=== PATIENT | female | born 1975 | race Caucasian/White ===

== ENCOUNTER 2016-06-11 09:15 | Emergency (ER) | payer OTHER ==
[~2016-06-11] VITALS: Ht 172.7 cm; Wt 59.0 kg
[~2016-06-11 09:15] MED LIST: ALBUTEROL0.09 MG/A1 INH; AMOXICILLIN500 M3 PO; AMOXIL 875 MG875 MG PO; AMOXIL500 MG PO; AUGMENTIN 875 M1 TAB PO; AZITHROMYCIN250 M1 PO; BACTRIM DS 8001 TAB PO; BENZONATATE200 M1 PO; FLONASE ALLERG9.9 ML NAS; FLONASE120 SPRAY/ NAS; LOMOTIL 0.025 M1 TAB PO; MEDROL DOSEPAK1 PAC PO; NASONEX0.05 MG/Ac NAS; NASONEX0.05 MG/Ac NS; PEPCID20 M1 PO; PROAIR HFA0.09 MG/Ac INH; PROVENTIL HFA6.7 GM INH; TESSALON PERLE100 M1 PO; TESSALON PERLE100 MG PO; ZITHROMAX Z-PA250 M1 PO; ZITHROMAX250 M2 PO; ZOFRAN4 M1 PO
[2016-06-11 09:19] VITALS: BP 103/58
[2016-06-11] MEDS ORDERED: AUGMENTIN 875-1 EACH PO (09:45)
--- NOTE | 2016-06-11 09:46 | ED INFLUENZA/URI COMPLAINT ---
History of Present Illness General Chief Complaint: Upper Respiratory Sx/Fever Stated Complaint: SORE THROAT, VICTOR,COUGHING Source: patient Exam Limitations: no limitations Vital Signs & Intake/Output Vital Signs & Intake/Output Vital Signs Date Time Temp Pulse Resp B/P Pulse O2 O2 Flow FiO2 Ox Delivery Rate 06/11 0919 100.4 101 18 103/58 99 Room Air Allergies Coded Allergies: NO KNOWN ALLERGIES (08/10/15) Reconcile Medications Albuterol Sulfate (Proventil Hfa) 90 MCG HFA.AER.AD 2 PUF INH Q4 sob Amoxicillin/Potassium Clav (Augmentin 875-125 Tablet) 875 MG-125 MG TABLET 1 TAB PO BID SINUSITIS Azithromycin (Zithromax) 250 MG TABLET 1 DP PO AD sinusitis 2 the first day followed by 1 for days 2-5 Benzonatate 200 MG CAPSULE 1 CAP PO TIDPRN cough Triage Note: PT STATSE SHE HAS A COLD FOR A COUPLE OF DAYS NOW. PT STATES SHE HAS BODY ACHES AND FEELS WEAK FOR THE PAST 4 DAYS. PT STATES SHE IS TAKING OTC MEDS AND THEY ARE NOT WORKING,. Triage Nurses Notes Reviewed? yes : No Patient currently breastfeeds: No HPI: 4 days of URI symptoms, cough congestion, intermittent fever, sinus congestion thick yellow and green nasal discharge sinus pain and pressure mild sore throat, headache frontal. Body aches chills. Atgu-spa-[id number] medication has been ineffective. Symptoms are moderate Past History Travel History Traveled to [place] past 21 day No Medical History Any Pertinent Medical History? 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 No Review of Systems Review of Systems Constitutional: Reports: see HPI. EENTM: Reports: see HPI. Respiratory: Reports: no symptoms. Cardiovascular: Reports: no symptoms. GI: Reports: no symptoms. Genitourinary: Reports: no symptoms. Musculoskeletal: Reports: no symptoms. Skin: Reports: no symptoms. Neurological/Psychological: Reports: no symptoms. Hematologic/Endocrine: Reports: no symptoms. Immunologic/Allergic: Reports: no symptoms. All Other Systems: Reviewed and Negative Physical Exam Physical Exam Ears, Nose, Throat: moist mucous membrane, hearing grossly normal, nasal congestion, nasal drainage, pharyngeal erythema, TENDERNESS TO THE FRONTAL SINUS AND MAXILLARY SINUS REGION Respiratory: normal breath sounds, chest non-tender, no respiratory distress Cardiovascular: tachycardia Comments: Well-developed well-nourished no apparent distress. HEENT: Atraumatic, extraocular motion intact Neck: Supple, no lymphadenopathy Back: Nontender Respiratory: No respiratory distress Extremities: No edema, full range of motion Neuro: Alert and oriented x3 Psych: Mood affect normal, normal memory normal judgment. Skin: Warm and dry, no rash on exposed skin Core Measures Severe Sepsis Present: No Septic Shock Present: No Progress Differential Diagnosis: influenza, meningitis, neutropenia, otitis, pneumonia, pharyngitis, sinusitis Plan of Care: Possible influenza versus sinusitis. It is too late to treat with Tamiflu and she has a large amount of sinus pain and pressure with congestion and thick nasal discharge. We'll treat with Augmentin. Recommend [id number] nasal spray for short-term relief Initial ED EKG: none Departure Departure Disposition: HOME OR SELF CARE Condition: Stable Clinical Impression Primary Impression: Sinusitis Qualifiers: Sinusitis location: maxillary Chronicity: acute Recurrence: non- recurrent Qualified Code: J01.00 - Acute maxillary sinusitis, unspecified Referrals: PATIENT HAS NO PRIMARY CARE DR (PCP/Family) Additional Instructions: Take antibiotics for your infection as directed. Use imrj-amz-wvjmsiy multisystem cold medication as needed. Motrin and Tylenol as needed for fever. Drink plenty of fluids. Return or follow-up with your doctor if not better in the next 3-5 days or if you're having continued worsening fevers, nausea, vomiting, shortness of breath, abdominal pain, difficulty swallowing or drinking or worsening flulike illness. Departure Forms: Customer Survey General Discharge Information Prescriptions: Current Visit Scripts Amoxicillin/Potassium Clav (Augmentin 875-125 Tablet) 1 TAB PO BID #20 TAB
== END 2016-06-11 09:48 ==
LOC: ERH 09:15
DX: J32.9 Chronic sinusitis, unspecified (principal); Z72.0 Tobacco use

== ENCOUNTER 2016-09-18 19:11 | Emergency (ER) | payer OTHER ==
[~2016-09-18] VITALS: Ht 172.7 cm; Wt 59.0 kg
[~2016-09-18 19:11] MED LIST changes: +AUGMENTIN 875-1 EACH PO
--- NOTE | 2016-09-18 21:10 | ED GI/GU/ABDOMINAL COMPLAINT ---
History of Present Illness General Chief Complaint: Abdominal Pain/Flank Pain Stated Complaint: ABD PAIN S/P TAKING DAYQUIL Source: patient, old records Exam Limitations: no limitations Vital Signs & Intake/Output Vital Signs & Intake/Output Vital Signs Date Time Temp Pulse Resp B/P B/P Pulse O2 O2 Flow FiO2 Mean Ox Delivery Rate 09/18 2250 97.2 102 18 116/69 93 09/18 2237 98.2 09/18 1915 101.2 94 16 107/67 97 Room Air ED Intake and Output 09/19 0000 09/18 1200 Intake Total 0 Output Total Balance 0 Intake, Oral 0 Patient 130 lb Weight Weight Reported by Patient Measurement Method Allergies Coded Allergies: NO KNOWN ALLERGIES (08/10/15) Reconcile Medications Albuterol Sulfate (Proventil Hfa) 90 MCG HFA.AER.AD 2 PUF INH Q4 sob Amoxicillin/Potassium Clav (Augmentin 875-125 Tablet) 875 MG-125 MG TABLET 1 TAB PO BID SINUSITIS Azithromycin (Zithromax) 250 MG TABLET 1 DP PO AD sinusitis 2 the first day followed by 1 for days 2-5 Benzonatate 200 MG CAPSULE 1 CAP PO TIDPRN cough Triage Note: PT STATES SHE HAS A COLD AND THIS AM SHE TOOK A DAYQUIL PILL AND THEN SHE BEGAN TO HAVE AN ACIDY GASSY PAIN IN HER STOMACH. Triage Nurses Notes Reviewed? yes ? N Is pt currently ? No Onset: Abrupt Duration: day(s): (1), intermittent, waxing and waning Timing: recent history Quality/Severity: aching Severity Numbers: 4 Location: generalized abdomen Radiation: no radiation Activities at Onset: none Prior Abdominal Problems: none Associated Symptoms: RHINORRHEA, CONGESTION,DRAMATIC READER COUGH HPI: 41-year-old female presents to ER for evaluation stating that she for the past 3 days has had rhinorrhea congestion and nonproductive cough. She states that she took DayQuil this morning began to have epigastric nonradiating abdominal pain. Denies history of similar symptoms in the past no nausea vomiting diarrhea. On arrival patient is afebrile however is declining anything in triage. No history of abdominal surgery she denies chance of no sick contacts she is not taken anything for pain which he states is intermittent and nonradiating waxing and waning. She denies the pain at this time no urinary complaints dysuria urgency frequency. (JENY SHEA) Past History Travel History Traveled to [place] past 21 day No Medical History Any Pertinent Medical History? 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 No (JENY SHEA) Review of Systems Review of Systems Constitutional: Reports: see HPI. All Other Systems: Reviewed and Negative Comments Review of systems: See HPI, All other systems negative. Constitutional, no chills fever, no malaise HEENT: No visual changes no sore throat no congestio Cardiovascular: No chest pain , no palpitation Skin: no rashes, no change in skin Respiratory: No dyspnea no cough GI: No nausea no vomiting, : No dysuria No hematuria, no frequency, no discharge Muscle skeletal: No joint pain, no joint swelling, no back pain, no neck pain, Neurologic: No numbness no headache Psych: No stress Heme/endocrine: No bruising Immunology: No lymphadenopathy (JENY SHEA) Physical Exam Physical Exam General Appearance: well developed/nourished, alert, awake Gastrointestinal: soft Comments: Well-developed well-nourished person in no acute distress Head/Face: Atraumatic, no maxillary/frontal sinus tenderness, no facial swelling Eyes: PERRL, EOMI, no conjunctival injection. Ear:External auditory canals clear, no erythema, no FB. Nose: atraumatic.Normal inspection: No bleeding Throat: Moist mucous membranes.Pharynx normal. No pharyngeal erythema/exudate seen. No stridor/drooling or assymetry. No swelling or edema. Neck: Supple, no lymphadenopathy, FROM Back: Nontender, no CVA tenderness. Full range of motion Cardiovascular: Regular rate and rhythms no murmurs rubs Respiratory: Chest nontender.There were no bony deformities, no asymmetry. No respiratory distress. Patient speaking in full complete sentences. Breath sounds clear to auscultation bilaterally: NO W/R/R Abdomen: Soft, nontender nondistended, no appreciable organomegaly. Normal bowel sounds. No rebound/guarding, No appreciable enlargement of the abdominal aorta, No ascites. Extremity: No edema, full range of motion of extremities Neuro: Alert oriented x3, motor sensory normal. There were no obvious focal neurologic abnormalities. Skin: No appreciable rash on exposed skin, skin is warm and dry. Psych: Mood and affect is normal, memory and judgment is normal. Core Measures ACS in differential dx? No Severe Sepsis Present: No Septic Shock Present: No (EBONY RICHARDS,JENY) Progress Differential Diagnosis: appendicitis, biliary colic, bowel obstruction, cholecystitis, ectopic , gastritis, hepatitis, hernia, ischemic bowel, inflamm bowel dis, kidney stone, pancreatitis, peptic ulcer, PUD/GERD, perforated viscous, SBO, UTI/pyelo, PNA, BRONCHITIS Plan of Care: Orders Procedure Date/time Status Saline Lock 09/18 2124 Active LIPASE 09/18 2124 Complete HUMAN BETA HCG SCREEN 09/18 2124 Complete COMPREHENSIVE METABOLIC PANEL 09/18 2124 Complete CBC WITHOUT DIFFERENTIAL 09/18 2124 Complete AMYLASE 09/18 2124 Complete Laboratory Tests 09/18/162134: Anion Gap 10, Estimated GFR > 60, BUN/Creatinine Ratio 15.7, Glucose 106 H, Calcium 8.8, Total Bilirubin 0.4, AST 23, ALT 30, Alkaline Phosphatase 64, Total Protein 7.6, Albumin 4.1, Globulin 3.5, Albumin/Globulin Ratio 1.2, Amylase 68, Lipase 40, Total Beta HCG NEGATIVE, CBC w Diff NO MAN DIFF REQ, RBC 3.57 L, MCV 85.8, MCH 28.4, RDW 15.1 H, MPV 7.3 L, Gran % 90.3 H, Lymphocytes % 3.8 L, Monocytes % 5.9, Eosinophils % 0, Basophils % 0 L, Absolute Granulocytes 10.8 H, Absolute Lymphocytes 0.5 L, Absolute Monocytes 0.7 H, Absolute Eosinophils 0, Absolute Basophils 0, PUBS MCHC 33.1 Labs ordered patient medicated with Toradol IV fluids On repeat evaluation patient reports she has had no pain here on repeat evaluation temperature is 98.2.. Abdomen soft nontender discussed with her need for bland diet Tylenol Motrin clear liquids advance as tolerated however to return immediately if her symptoms worsen. I discussed with the patient at length all of their results. I had an extensive conversation regarding need for close follow up with their primary care physician this week as well as return precautions. I answered all of their questions, they feel comfortable with the plan and follow-up care. (JENY SHEA) Initial ED EKG: none (JENY SHEA) Departure Departure Time of Disposition: 2239 Disposition: HOME OR SELF CARE Condition: Stable Clinical Impression Primary Impression: Viral syndrome Referrals: PATIENT HAS NO PRIMARY CARE DR (PCP/Family) Additional Instructions: tylenol or motrin every 4-6 hours. bland diet, drink plenty of clear fluids. follow up withyour pmd this week, return to the ER with any concerns Departure Forms: Customer Survey General Discharge Information (JENY SHEA) PA/DRAMATIC READER Co-Sign Statement Statement: ED Attending supervision documentation- [] I saw and evaluated the patient. I have also reviewed all the pertinent lab results and diagnostic results. I agree with the findings and the plan of care as documented in the PA's/DRAMATIC READER's documentation. [X] I have reviewed the ED Record and agree with the PA's/DRAMATIC READER's documentation. [] Additions or exceptions (if any) to the PAs/DRAMATIC READER's note and plan are summarized below: [] (VITO VIGIL,[place])
[2016-09-18 21:42] LABS: ABSOLUTE BASOPHIL COUNT 0 /CUMM (0.0-0.2); ABSOLUTE EOSINOPHIL COUNT 0 /CUMM (0.0-0.7); ABSOLUTE GRANULOCYTE CT 10.8 /CUMM (1.4-6.5); ABSOLUTE LYMPH COUNT 0.5 /CUMM (1.2-3.4); ABSOLUTE MONOCYTE COUNT 0.7 /CUMM (0.10-0.60); BASOPHIL % 0 % (0.0-2.0); EOSINOPHIL % 0 % (0-5); HEMATOCRIT 30.7 % (37-47); MEAN CORPUSCULAR HGB 28.4 PG (27.0-31.0); MEAN CORPUSCULAR HGB CONC 33.1 G/DL (33.0-37.0); MEAN CORPUSCULAR VOLUME 85.8 FL (81.0-99.0); MEAN PLATELET VOLUME 7.3 FL (7.4-10.4); PLATELET COUNT 243 /CUMM (130-400); RBC DISTRIBUTION WIDTH 15.1 % (11.5-14.5); RED BLOOD CELL CT 3.57 /CUMM (4.20-5.40)
[2016-09-18 21:56] LABS: GRANULOCYTE % 90.3 % (42.2-75.2)
[2016-09-18 22:50] VITALS: BP 116/69
== END 2016-09-18 22:52 ==
LOC: ERH 19:11
PROVIDERS: Physician Assistant Medical
DX: B34.9 Viral infection, unspecified (principal)
CPT/HCPCS: 96374; 96375; J1885

== ENCOUNTER 2016-09-20 09:30 | Emergency (ER) | payer OTHER ==
[~2016-09-20] VITALS: Ht 172.7 cm; Wt 59.0 kg
[2016-09-20 09:33] VITALS: BP 114/63
--- NOTE | 2016-09-20 09:54 | ED THROAT/DENTAL COMPLAINT ---
See Addendum History of Present Illness General Chief Complaint: Sore Throat, Dental Pain Stated Complaint: SORE THROAT Source: patient Exam Limitations: no limitations Vital Signs & Intake/Output Vital Signs & Intake/Output Vital Signs Date Time Temp Pulse Resp B/P B/P Pulse O2 O2 Flow FiO2 Mean Ox Delivery Rate 09/20 0933 98.5 88 18 114/63 99 Room Air Allergies Coded Allergies: NO KNOWN ALLERGIES (08/10/15) Triage Note: PT TO ED FOR SORE THROAT X 2 DAYS. Triage Nurses Notes Reviewed? yes : No Patient currently breastfeeds: No HPI: Patient presents for evaluation of a sore throat that has been constant since gradual onset 2 days ago. Patient states it is a severe pain gets worse with swallowing. She states she's been drinking "a lot of hot stuff" without improvement. She also has tried a cough medicine without improvement. She has been suffering nasal congestion and a nonproductive cough (she did have 1 episode of posttussive vomiting). No associated rashes or fevers. Patient denies any known ill contacts or recent travel. She is a cigarette smoker. Past History Travel History Traveled to [place] past 21 day No Medical History Any Pertinent Medical History? 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 No Review of Systems Review of Systems Constitutional: Reports: no symptoms. EENTM: Reports: see HPI. Respiratory: Reports: no symptoms. Cardiovascular: Reports: no symptoms. GI: Reports: no symptoms. Genitourinary: Reports: no symptoms. Musculoskeletal: Reports: no symptoms. Skin: Reports: no symptoms. Neurological/Psychological: Reports: no symptoms. Hematologic/Endocrine: Reports: no symptoms. Immunologic/Allergic: Reports: no symptoms. All Other Systems: Reviewed and Negative Physical Exam Physical Exam Mouth/Throat: see below Comments: Gen.: Well-nourished, well-developed, no acute respiratory distress. Head: Normocephalic, atraumatic. Eyes: Normal inspection bilaterally Ears: Normal inspection bilaterally Nose: Normal inspection Throat/mouth : Moist mucosa, mild oropharyngeal erythema without soft tissue swelling exudates or uvular deviation Neck: Supple, full range of motion, no goiter Heart: Regular rate and rhythm, no murmurs rubs or gallops Lungs: Clear to auscultation bilaterally with normal air entry Chest: Nontender Back: Normal range of motion Abdomen: Soft, nontender, nondistended, normal bowel sounds, no organomegaly Extremities: Normal range of motion grossly, equal radial pulses, no cyanosis clubbing or edema Neurologic: Cranial nerves grossly intact, speech is clear Skin: warm and dry Psychiatric: Calm, cooperative, no apparent delusions or hallucinations Lymphatic: No tender cervical lymphadenopathy Core Measures ACS in differential dx? No Severe Sepsis Present: No Septic Shock Present: No Progress Differential Diagnosis: jodi-tonsillar abscess, strep pharyngitis Plan of Care: Orders Procedure Date/time Status THROAT CULTURE W/QUICK STREP 09/20 0935 Active Departure Departure Disposition: HOME OR SELF CARE Condition: Stable Clinical Impression Primary Impression: Viral pharyngitis Referrals: PATIENT HAS NO PRIMARY CARE DR (PCP/Family) Additional Instructions: Lots of fluids. Ibuprofen 600 mg every 6 hours as needed for pain and muscle aches or fever. Bromfed-DM as needed for cough or nasal congestion. Follow-up with your primary care physician if not improved in 5 days. Return if any concerns or sudden worsening. Thank you for choosing the [facility] for your care. It was a pleasure to serve you today. Raymundo Sethi M.D. [facility] Departure Forms: Customer Survey General Discharge Information
[2016-09-20] MEDS ORDERED: BROMFED DM COU118 M1 PO (10:12)
== END 2016-09-20 10:20 ==
LOC: ERH 09:30
DX: J02.8 Acute pharyngitis due to other specified organisms (principal); F17.210 Nicotine dependence, cigarettes, uncomplicated